=== PATIENT | male | born 1945 | race Caucasian/White ===

== ENCOUNTER 2017-07-24 23:49 | Emergency (ER) | payer MEDICARE, OTHER ==
[~2017-07-24] VITALS: Ht 175.3 cm; Wt 86.0 kg
[2017-07-24 23:50] VITALS: BP 145/77; PULSE 82; RESP 18; TEMP 97.9; O2SAT 97
--- NOTE | 2017-07-25 00:41 | PD ---
HPI Chief Complaint: Back/ Neck Pain or Injury Time Seen by Provider: 00:37 Travel History International Travel<30 days: No Contact w/Intl Traveler<30days: No Traveled to known affect area: No History of Present Illness HPI Patient gives a history of over the past 3 weeks increased pain getting over the flu. Stated that he did not take any Tamiflu or was not treated he simply was taking TheraFlu and has gradually improved. However over the last few days he has now No known drug allergies Past medical history significant for hypertension diabetes smoker Past surgical history significant for cholecystectomy [facility] Past Medical History Hx Anticoagulant Therapy: Yes (aspirin) Cardiovascular Problems: Yes (HTN) Diabetes: Yes Patient Takes Glucophage: Yes (Metformin) Hypertension: Yes Tetanus Vaccination: Unknown Influenza Vaccination: No Past Surgical History Cholecystectomy: Yes Social History Alcohol Use: No Tobacco Use: No (2PPD ) Substance Use: No Allergies-Medications (Allergen,Severity, Reaction): Coded Allergies: No Known Drug Allergies (Verified Allergy, Unknown, 07/25/17) Review of Systems Except as stated in HPI: all other systems reviewed are Neg Respiratory: Positive: Cough Physical Exam Narrative GENERAL: SKIN: Warm and dry. HEAD: Atraumatic. Normocephalic. EYES: Pupils equal and round. No scleral icterus. No injection or drainage. ENT: No nasal bleeding or discharge. Mucous membranes pink and moist. NECK: Trachea midline. No JVD. CARDIOVASCULAR: Regular rate and rhythm. RESPIRATORY: No accessory muscle use. Clear to auscultation. Breath sounds equal bilaterally. GASTROINTESTINAL: Abdomen soft, non-tender, nondistended. MUSCULOSKELETAL: Extremities without clubbing, cyanosis, or edema. No obvious deformities. NEUROLOGICAL: Awake and alert. No obvious cranial nerve deficits. Motor grossly within normal limits. Five out of 5 muscle strength in the arms and legs. Normal speech. PSYCHIATRIC: Appropriate mood and affect; insight and judgment normal. Data Data Last Documented VS Vital Signs Date Time Temp Pulse Resp B/P (MAP) Pulse Ox O2 Delivery O2 Flow Rate FiO2 07/24/17 23:50 97.9 82 18 145/77 (99) 97 Room Air Orders Orders Chest, Pa & Lat (07/25/17 00:37) Ketorolac Inj (Toradol Inj) (07/25/17 00:45) Orphenadrine Inj (Norflex Inj) (07/25/17 00:45) Spine, Lumbar - Ltd (Ap & Lat) (07/25/17 ) Pelvis, Ap Only (Routine) (07/25/17 ) MDM Medical Decision Making Medical Screen Exam Complete: Yes Emergency Medical Condition: Yes Medical Record Reviewed: Yes Differential Diagnosis Chest wall strain versus lumbar strain versus pneumonia versus mass Narrative Course Patient's chest x-ray did not show any evidence of any pneumonia however it did show a left upper lobe mass which is highly suspicious for malignancy according to the radiologist. Patient's primary care doctor is out of [place] Dr. Mccann Diagnosis Primary Impression: CHEST WALL STRAIN Additional Impressions: Lumbar strain Qualified Codes: S39.012A - Strain of muscle, fascia and tendon of lower back , initial encounter Left upper lung mass Patient Instructions: General Instructions Additional Instructions: please get in touch with your primary care doctor to have further evaluation of this lung mass that was found as it may be cancer. Scripts Codeine-Acetaminophen (Codeine-Acetaminophen) 30-300 mg Tab 1 TAB PO Q4H Y for PAIN, #15 TAB 0 Refills Prov: Ravi Mohan MD 07/25/17 Ravi Mohan MD Jul 25, 2017 00:41
[2017-07-25] MEDS ORDERED: KETOROLAC TROMETHAMINE 60 MG/2 ML (IM) VIAL IM ONE (00:45)
[2017-07-25] MEDS ORDERED: ORPHENADRINE INJ 60 MG/2 ML AMP IM ONE (00:45)
--- NOTE | 2017-07-25 01:00 | RADRPT ---
EXAM DATE/TIME: 07/25/2017 00:49 [facility] COMPARISON: No previous studies available for comparison. INDICATIONS : Coughing and midsternal chest pain x 1 week. MEDICAL HISTORY : Hypertension. Diabetes mellitus type II. SURGICAL HISTORY : Cholecystectomy. ENCOUNTER: Initial ACUITY: 1 week PAIN SCORE: 6/10 LOCATION: Bilateral chest FINDINGS: Approximate 6 cm mass is present in the left upper lobe posteriorly near the major fissure highly diana picious for malignancy. CONCLUSION: Left upper lobe mass highly suspicious for malignancy. Harriet Alonzo MD on July 25, 2017 at 0:57 Board Certified Radiologist. This report was verified electronically.
--- NOTE | 2017-07-25 01:49 | RADRPT ---
EXAM DATE/TIME: 07/25/2017 01:31 [facility] COMPARISON: No previous studies available for comparison. INDICATIONS : Back pain. Rule out mets. MEDICAL HISTORY : Hypercholesterolemia. Hypertension. Diabetes mellitus type II. SURGICAL HISTORY : Cholecystectomy. ENCOUNTER: Initial ACUITY: 1 week PAIN SCORE: 6/10 LOCATION: lumbar FINDINGS: No appreciable compression deformities, spondylolisthesis, or spondylolysis is seen. Significant deg enerative changes are seen within the disc space and facets with fusion osteophytes floating anterior ly. Chronic atherosclerotic calcifications are seen without any definite aneurysmal dilatations for t echnique. There is evidence for prior cholecystectomy. CONCLUSION: Chronic changes. Harriet Alonzo MD on July 25, 2017 at 1:47 Board Certified Radiologist. This report was verified electronically.
--- NOTE | 2017-07-25 01:49 | RADRPT ---
EXAM DATE/TIME: 07/25/2017 01:30 [facility] COMPARISON: No previous studies available for comparison. INDICATIONS : Lower back pain. Rule out mets. MEDICAL HISTORY : Hypercholesterolemia. Hypertension Diabetes mellitus type II. SURGICAL HISTORY : Cholecystectomy. ENCOUNTER: Initial ACUITY: 1 week PAIN SCORE: 6/10 LOCATION: pelvis, posterior FINDINGS: A No definite fractures, or dislocations are identified. No definite lytic or sclerotic lesion is se en. The joint spaces are well maintained. CONCLUSION: Unremarkable study. Harriet Alonzo MD on July 25, 2017 at 1:47 Board Certified Radiologist. This report was verified electronically.
[2017-07-25] MEDS ORDERED: CODE30TA2 PO (01:57)
[2017-07-25] MEDS ORDERED: MORPHINE SULFATE 2 MG/ML INJ IM ONE (02:15)
[2017-07-25] MEDS ORDERED: ONDANSETRON ODT 4 MG TAB PO ONE (02:15)
== END 2017-07-25 02:45 | disposition home or self-care (01) ==
LOC: NEPE 23:49
DX: S29.011A Strain of muscle and tendon of front wall of thorax, initial encounter (principal); S39.012A Strain of muscle, fascia and tendon of lower back, initial encounter; R91.8 Other nonspecific abnormal finding of lung field; I10 Essential (primary) hypertension; E11.9 Type 2 diabetes mellitus without complications; F17.210 Nicotine dependence, cigarettes, uncomplicated; X58.XXXA Exposure to other specified factors, initial encounter; Z79.84 Long term (current) use of oral hypoglycemic drugs; Z79.82 Long term (current) use of aspirin
CPT/HCPCS: 71046; 72100; 72170; 96372; 99284; J1885; J2270; J2360